=== PATIENT | male | born 1960 | race American Indian/Alaskan Native ===

== ENCOUNTER 2018-01-23 11:40 | Observation (INO) | payer OTHER ==
[2018-01-23] MEDS ORDERED: NACL 0.9% 500 ML IR ONE (12:07)
[2018-01-23] MEDS ORDERED: MARCAINE 0.5% 60 ML INFILTRATI ONE (12:07)
[2018-01-23] MEDS ORDERED: ANCEF/STERILE WATER 2 GM/20 ML 2 GM/20 ML SYRINGE IV ONE (12:08)
--- NOTE | 2018-01-23 12:48 | Anesthesia Consultation ---
Anesthesia Consult and Med Hx Date of service: 01/23/18 - Airway Anesthetic Teeth Evaluation: Good ROM Head & Neck: Adequate Mental/Hyoid Distance: Adequate Mallampati Class: Class I Intubation Access Assessment: Good - Pulmonary Exam CTA: Yes - Cardiac Exam Cardiac Exam: RRR - Pre-Operative Health Status ASA Pre-Surgery Classification: ASA3 Proposed Anesthetic Plan: General - Pulmonary Hx Smoking: Yes (Quit in 1990) - Cardiovascular System Hx Hypertension: Yes Hx Angina: Yes Hx Heart Murmur: Yes - Endocrine Hx Insulin Dependent Diabetes: Yes (Takes pills and insulin) - Other Systems Hx Cancer: No - Additional Comments Anesthesia Medical History Comments: NAC.
--- NOTE | 2018-01-23 12:49 | Anesthesia Day of Surgery ---
Anesthesia Day of Surgery - Day of Surgery Patient Examined: Yes Patient H&P Reviewed: Yes Patient is NPO: Yes
[2018-01-23 12:52] LABS: Basophils % (Auto) 0.9 % (0.0-1.8); Eosinophils % (Auto) 0.1 % (0.0-4.3); Hematocrit 37.1 % (35.5-45.6); Hemoglobin 12.4 gm/dl (11.8-15.2); Lymphocytes # (Auto) 1.2 K/mm3 (1.2-5.4); Lymphocytes % (Auto) 30.4 % (13.4-35.0); Mean Corpuscular HGB Conc 34 % (32-34); Mean Corpuscular Hemoglobin 30 pg (28-32); Mean Corpuscular Volume 89 fl (84-94); Monocytes # (Auto) 0.6 K/mm3 (0.0-0.8); Monocytes % (Auto) 14.6 % (0.0-7.3); Platelet Count 183 K/mm3 (140-440); Red Blood Count 4.18 M/mm3 (3.65-5.03); Red Cell Distribution Width 16.3 % (13.2-15.2)
[2018-01-23] MEDS ORDERED: NACL 0.9% 1,000 ML, VANCOMYCIN VIAL 1,000 MG IR ONE (13:00)
[2018-01-23 13:02] LABS: INR 1.08 (0.87-1.13)
[2018-01-23 13:03] LABS: Partial Thromboplastin Time 32.3 Sec. (24.2-36.6)
[2018-01-23 13:05] LABS: BUN/Creatinine Ratio 21; Blood Urea Nitrogen 23 mg/dL (9-20); Calcium 9.5 mg/dL (8.4-10.2); Hemolysis Index 8
[2018-01-23] MEDS ORDERED: DIPRIVAN 10 MG/ML 1,000 MG/100 ML BOTTLE IV ONE ×2 (13:08→13:22)
[2018-01-23] MEDS: NACL 0.9% 1000 ML 1,000 ML IV SCH ×2 (13:09→14:00)
[2018-01-23] MEDS ORDERED: VERSED IV ONE (13:11)
[2018-01-23] MEDS ORDERED: DILAUDID ONE (13:11)
[2018-01-23] MEDS ORDERED: NACL 0.9% 500 ML 500 ML ONE (13:38)
[2018-01-23] MEDS ORDERED: HEPARIN/NS 5000 UNIT/500ML(CATH LAB) 500 ML IR ONE (13:58)
[2018-01-23] MEDS: XYLOCAINE 1% 20 mL ONE ×2 (14:15→14:16)
[2018-01-23] MEDS ORDERED: VANCOMYCIN VIAL 1,000 MG in NACL 0.9% 1,000 ML IRRIGATION ONE (14:24)
[2018-01-23] MEDS ORDERED: ZOFRAN IV PRN (16:38)
[2018-01-23] MEDS ORDERED: TYLENOL PO PRN (16:38)
[2018-01-23] MEDS ORDERED: D50W (25GM) Syringe IV PRN (16:43)
[2018-01-23] MEDS ORDERED: ANCEF/NS 1 GM/50 ML 1 GM/50 ML BAG IV SCH (17:00)
[2018-01-23] MEDS ORDERED: LASIX PO SCH (18:00)
--- NOTE | 2018-01-23 18:28 | XRay Report ---
FINAL REPORT PROCEDURE: XR CHEST 1V AP TECHNIQUE: Chest radiograph anteroposterior view. CPT 21480 HISTORY: Pacemaker Postop COMPARISON: No prior studies are available for comparison. FINDINGS: Dual-chamber pacemaker implanted in the left side of the chest. No evidence of pneumothorax. Sternotomy wires are visualized. The heart is enlarged. There appears to be pleural thickening or small amount of pleural fluid on the left. There is some patchy increased density adjacent to the left heart border. Right lung appears clear. No acute bony abnormalities are seen. IMPRESSION: Dual-chamber pacemaker in place. No evidence of pneumothorax. Cardiomegaly. Prior thoracotomy. Pleural thickening on the left as well as some increased markings adjacent to the left heart border. This may represent chronic scarring. I cannot exclude superimposed acute atelectasis or infiltrate.. Mild pleural thickening seen on the left. I cannot exclude small amount of left pleural fluid.
[2018-01-23] MEDS: ANCEF/NS 1 GM/50 ML 1 GM/50 ML BAG IV SCH (21:28)
[2018-01-23] MEDS: COREG PO SCH (21:28)
[2018-01-23] MEDS: LASIX PO SCH (21:30)
[2018-01-23] MEDS: HumaLOG SUB-Q SCH (22:09)
[2018-01-24] MEDS: ANCEF/NS 1 GM/50 ML 1 GM/50 ML BAG IV SCH (05:11)
[2018-01-24] MEDS: LASIX PO SCH (05:12)
[2018-01-24] MEDS: HumaLOG SUB-Q SCH ×2 (09:27→12:33)
[2018-01-24] MEDS ORDERED: NORVASC PO SCH (10:00)
[2018-01-24] MEDS ORDERED: IMDUR PO SCH (10:00)
[2018-01-24] MEDS ORDERED: CARVEDILOL PHOSPHATE 40 MG PO SCH (10:00)
[2018-01-24] MEDS: COREG PO SCH (10:04)
[2018-01-24 12:39] VITALS: BP 117/75
--- NOTE | 2018-01-24 13:16 | Short Stay Summary ---
Short Stay Documentation Date of service: 01/24/18 - History H&P: obtained from office - Allergies and Medications Current Medications: Allergies No Known Allergies Allergy (Verified 01/26/16 07:08) Home Medications Medication Instructions Recorded Confirmed Last Taken Type Allopurinol 300 mg PO QDAY 01/26/16 01/23/18 01/22/18 History 300mg Aspirin EC [Aspirin Enteric Coated 81 mg PO QDAY 01/26/16 01/23/18 01/22/18 History TAB] 81mg Atorvastatin [Lipitor Tab] 80 mg PO QHS 01/26/16 01/23/18 01/22/18 History 80mg Carvedilol Phosphate [Coreg CR] 40 mg PO QDAY 01/26/16 01/23/18 01/22/18 History 40mg Metformin HCl [Fortamet ER] 1,000 mg PO QHS 01/26/16 01/23/18 01/22/18 History 1000mg Nitroglycerin [Nitrostat] 0.4 mg SUBLINGUAL Q5MIN PRN 01/26/16 01/23/18 Unknown History amLODIPine [Norvasc] 10 mg PO QDAY 01/26/16 01/23/18 01/22/18 History 10mg Furosemide [Lasix TAB] 40 mg PO BID 01/23/18 01/23/18 01/22/18 History 40mg ISOSORBIDE MONOnitrate [Imdur ER] 120 mg PO DAILY 01/23/18 01/23/18 01/22/18 History 120mg Insulin Glargine,Hum.rec.anlog 45 units SC DAILY 01/23/18 01/23/18 01/22/18 History [Tokristina Edge] 45units Klor-Con M20 20 mg PO BID 01/23/18 01/23/18 01/22/18 History 20meq Sildenafil Citrate [Viagra] 25 mg PO PRN PRN 01/23/18 01/23/18 01/16/18 History 25mg Telmisartan 80 mg PO DAILY 01/23/18 01/23/18 01/22/18 History 80mg Active Medications Acetaminophen (Tylenol) 650 mg PO Q4H PRN PRN Reason: Mild pain (1-3) Amlodipine Besylate (Norvasc) 10 mg PO QDAY MARILEE Last Admin: 01/24/18 10:04 Dose: 10 mg Atorvastatin Calcium (Lipitor) 80 mg PO QHS [facility] Last Admin: 01/23/18 21:28 Dose: 80 mg Carvedilol (Coreg) 12.5 mg PO BID [facility] Last Admin: 01/24/18 10:04 Dose: 12.5 mg Dextrose (D50w (25gm) Syringe) 50 ml IV PRN PRN PRN Reason: Hypoglycemia Furosemide (Lasix) 40 mg PO 0600,1800 [facility] Last Admin: 01/24/18 05:12 Dose: 40 mg Sodium Chloride (Nacl 0.9% 1000 Ml) 1,000 mls @ 50 mls/hr IV DIRECT [facility] Last Admin: 01/23/18 14:00 Dose: 50 mls/hr Insulin Human Lispro (Humalog) 0 unit SUB-Q ACHS [facility]; Protocol Last Admin: 01/24/18 12:33 Dose: Not Given Isosorbide Mononitrate (Imdur) 120 mg PO DAILY [facility] Last Admin: 01/24/18 10:04 Dose: 120 mg Ondansetron HCl (Zofran) 4 mg IV Q8H PRN PRN Reason: Nausea And Vomiting - Physical exam General appearance: no acute distress Integumentary: no rash, no growths, no abnormal pigmentation, other (left pectoralis AICD implantation site pressure dressing removed, site covered with telfa and tegaderm dressing, site c/d/i with no evidence of bleeding or hematoma ) Lungs: Clear to auscultation Heart: Regular rate, Normal S1, Normal S2 Extremities: no ischemia, pulses intact, pulses symmetrical, No edema, normal temperature, normal color Neurological: Normal gait, Normal speech, Strength at 5/5 X4 ext - Brief post op/procedure progress note Date of procedure: 01/23/18 Pre-op diagnosis: ICMP Post-op diagnosis: same Procedure: Bi-V AICD implantation - see operative report - Hospital course Hospital course: Pt presented for scheduled biventricular cardiac defibrillatior placement and subsequently underwent AICD implantation. He remained medically stable throughout procedure and recovery and is medically stable for discharge home today. Post-procedure CXR showed no pneumothorax. - Disposition Condition at discharge: Stable Disposition: DC-01 TO HOME OR SELFCARE - Discharge Diagnoses (1) CAD (coronary artery disease) Status: Chronic (2) Hx of CABG Status: Chronic (3) Ischemic cardiomyopathy Status: Chronic (4) LBBB (left bundle branch block) Status: Chronic (5) Cardiac defibrillator in situ Status: Chronic Short Stay Discharge Plan Activity: advance as tolerated Diet: low fat, low cholesterol, low salt Wound: keep clean and dry, per your surgeon's advice Special Instructions: other (per discharge instructions) Follow up with: JANELL CHEEMA MD [Primary Care Provider] - 7 Days GIOVANNI BLACKWELL MD [Staff Physician] - 7 Days (post-op incision check in our [place] office on 01/29/2018 @ 1:00PM)
--- NOTE | 2018-01-26 16:27 | Post Anesthesia Evaluation ---
- Post Anesthesia Evaluation Patient Participated: Yes Airway Patent: Yes Stable Respiratory Function: Yes Nausea/Vomiting: No Temp > 96.8F: Yes Pain Manageable: Yes Adequeate Hydration: Yes Anesthesia Complications: No Block Receding Appropriately: No Patient on Ventilator: No
== END 2018-01-24 14:30 | disposition home or self-care (01) ==
LOC: CATHLABREC 11:40 → 4A 14:41
PROVIDERS: ADMIT Internal Medicine Cardiovascular Disease; ATTEND Internal Medicine Cardiovascular Disease
DX: I42.9 Cardiomyopathy, unspecified (principal); I44.7 Left bundle-branch block, unspecified; I25.10 Atherosclerotic heart disease of native coronary artery without angina pectoris; Z95.5 Presence of coronary angioplasty implant and graft
CPT/HCPCS: 33225; 33249; 36415; 71045; 76000; 80048; 82962; 85025; 85610; 85730; 93005; 93010; 96365; 96375; A9270; C1769; C1882; C1892; C1895; C1898; C1900; G0378; J0690; J1170; J1644; J2250; J2704; J3370; J7030; J7040; Q9967